=== PATIENT | female | born 1940 | race Caucasian/White ===

== ENCOUNTER 2018-08-02 12:03 | Inpatient (IN) ==
[2018-08-02 16:21] LABS: BASOPHILS % (AUTO) 0.6 % (0.2-1.0); EOSINOPHILS # (AUTO) 0.1 x10^3/uL (0.0-0.2); EOSINOPHILS % (AUTO) 1.1 % (0.9-2.9); HEMATOCRIT 32.2 % (36.0-47.0); HEMOGLOBIN 10.8 g/dL (12.0-16.0); LYMPHOCYTES # (AUTO) 1.6 X10^3/uL (1.3-2.9); LYMPHOCYTES % (AUTO) 28.1 % (21.0-51.0); MEAN CORPUSCULAR HEMOGLOBIN 30.9 pg (27.0-34.0); MEAN CORPUSCULAR HGB CONC 33.4 g/dL (33.0-35.0); MEAN CORPUSCULAR VOLUME 92.6 fL (80.0-100.0); MEAN PLATELET VOLUME 8.1 fL (7.4-11.0); MONOCYTES # (AUTO) 0.5 x10^3/uL (0.3-0.8); MONOCYTES % (AUTO) 8.5 % (0.0-13.0); NEUTROPHILS # (AUTO) 3.5 x10^3/uL (2.2-4.8); NEUTROPHILS % (AUTO) 61.7 % (42.0-75.0); PLATELET COUNT 149 X10^3/uL (150.0-450.0); RED BLOOD COUNT 3.48 X10^6/uL (3.5-5.4); RED CELL DISTRIBUTION WIDTH 13.8 % (11.6-16.5); WHITE BLOOD COUNT 5.7 X10^3/uL (3.6-10.0)
[2018-08-02 16:43] LABS: ALANINE AMINOTRANSFERASE 19 Units/L (12-78); ALKALINE PHOSPHATASE 84 Units/L (46-116); ASPARTATE AMINO TRANSFERASE 18 Units/L (15-37); BLOOD UREA NITROGEN 24 mg/dL (7-18); CALCIUM 8.9 mg/dL (8.5-10.1); CARBON DIOXIDE 27.9 mmol/L (21-32); CHLORIDE 102 mmol/L (98-107); CKMB % 7.8 % (<4); COR CA(FOR HYPOALB) 9.7 mg/dL (8.5-10.1); COR NA(FOR HYPERGLY) 140 mmol/L (136-145); CREATINE KINASE 37 Units/L (26-192); CREATINE KINASE MB 2.9 ng/mL (0-4.0); CREATININE 1.18 mg/dL (0.55-1.02); SODIUM 138 mmol/L (136-145); TOTAL PROTEIN 6.6 g/dL (6.4-8.2); TROPONIN I < 0.02 ng/mL (0-1.5); eGFR NON BLACK RACES 47 (>60)
--- NOTE | 2018-08-02 16:56 | CT ---
CT brain without contrast Indication:recent fall with altered mental status Comparison: None available Technique: Multiple axial images of the brain were obtained from the skull base to the vertex without administration of IV contrast. Dose reduction techniques including automated exposure control (AEC) and adjustment of mA and kV were utilized. Findings: Mild generalized cerebral atrophy. There is also mild bilateral periventricular hypoattenuation. Small right supraorbital frontal scalp hematoma without subjacent fracture. There is a small round radiopaque density within the left preseptal orbital soft tissues which appears to be ossified. No acute intraparenchymal hemorrhage or mass can be identified. No extra-axial fluid collections are seen. No alteration in the attenuation of the brain parenchyma can be identified to suggest acute or subacute ischemic change. The ventricular system is symmetric and nondilated. The extracranial structures are grossly unremarkable. IMPRESSION: No acute intracranial process is identified. Small right supraorbital frontal scalp hematoma. Small round radiopaque density likely is ossified within the left preseptal, orbital soft tissues. Mild generalized cerebral atrophy with bilateral periventricular and deep white matter hypoattenuation is nonspecific however likely represent sequela of chronic microvascular ischemic disease. Reported By:
[2018-08-02] MEDS: NS 1000 ML 1,000 ML IV SCH (17:42)
[2018-08-02] MEDS: ROCEPHIN VIAL 1 GRAM IVP SCH (17:42)
[2018-08-02 18:20] VITALS: BMI 24.7
[2018-08-03 00:27] LABS: CKMB % 4.2 % (<4); CREATINE KINASE MB 2.2 ng/mL (0-4.0); TROPONIN I 0.04 ng/mL (0-1.5)
[2018-08-03] MEDS ORDERED: CATAPRES TAB 0.1 MG ONE (01:47)
[2018-08-03] MEDS ORDERED: CATAPRES TAB 0.1 MG PO ONE (01:48)
[2018-08-03 02:02] LABS: BILIRUBIN,URINE NEGATIVE (NEGATIVE); BLOOD/HEMOGLOBIN,URINE NEGATIVE (NEGATIVE); GLUCOSE, URINE NEGATIVE (NEGATIVE); KETONES,URINE NEGATIVE (NEGATIVE); LEUKOCYTE ESTERASE ,URINE NEGATIVE (NEGATIVE); NITRITES,URINE NEGATIVE (NEGATIVE); PH,URINE 6.5 (5.0 - 8.0); PROTEIN,URINE NEGATIVE (NEGATIVE); UROBILINOGEN,URINE NORMAL (NORMAL)
[2018-08-03 02:04] LABS: APPEARANCE,URINE CLEAR (CLEAR); COLOR,URINE PALE YELLOW (YELLOW)
[2018-08-03] MEDS ORDERED: APRESOLINE INJ 20 MG VIAL IVP ONE (04:08)
[2018-08-03] MEDS ORDERED: APRESOLINE INJ 20 MG VIAL ONE (04:12)
[2018-08-03] MEDS: NS 1000 ML 1,000 ML IV SCH ×4 (06:10→22:34)
[2018-08-03 07:35] LABS: BASOPHILS % (AUTO) 0.9 % (0.2-1.0); EOSINOPHILS # (AUTO) 0.1 x10^3/uL (0.0-0.2); EOSINOPHILS % (AUTO) 1.3 % (0.9-2.9); HEMATOCRIT 32.8 % (36.0-47.0); HEMOGLOBIN 11.1 g/dL (12.0-16.0); LYMPHOCYTES # (AUTO) 1.5 X10^3/uL (1.3-2.9); LYMPHOCYTES % (AUTO) 31.4 % (21.0-51.0); MEAN CORPUSCULAR HGB CONC 33.8 g/dL (33.0-35.0); MEAN CORPUSCULAR VOLUME 91.7 fL (80.0-100.0); MEAN PLATELET VOLUME 8.3 fL (7.4-11.0); MONOCYTES # (AUTO) 0.5 x10^3/uL (0.3-0.8); MONOCYTES % (AUTO) 11.1 % (0.0-13.0); NEUTROPHILS # (AUTO) 2.7 x10^3/uL (2.2-4.8); NEUTROPHILS % (AUTO) 55.3 % (42.0-75.0); PLATELET COUNT 157 X10^3/uL (150.0-450.0); RED BLOOD COUNT 3.58 X10^6/uL (3.5-5.4); RED CELL DISTRIBUTION WIDTH 13.8 % (11.6-16.5); WHITE BLOOD COUNT 4.9 X10^3/uL (3.6-10.0)
[2018-08-03 07:36] LABS: ALANINE AMINOTRANSFERASE 19 Units/L (12-78); ALBUMIN 2.9 g/dL (3.4-5.0); ALKALINE PHOSPHATASE 75 Units/L (46-116); ASPARTATE AMINO TRANSFERASE 23 Units/L (15-37); BLOOD UREA NITROGEN 17 mg/dL (7-18); CALCIUM 9.3 mg/dL (8.5-10.1); CARBON DIOXIDE 28.2 mmol/L (21-32); CHLORIDE 105 mmol/L (98-107); COR CA(FOR HYPOALB) 10.2 mg/dL (8.5-10.1); CREATININE 0.95 mg/dL (0.55-1.02); SODIUM 142 mmol/L (136-145); TOTAL PROTEIN 6.5 g/dL (6.4-8.2); eGFR NON BLACK RACES > 60 (>60)
[2018-08-03 07:46] LABS: CKMB % 7.8 % (<4); CREATINE KINASE MB 2.9 ng/mL (0-4.0); TROPONIN I 0.03 ng/mL (0-1.5)
[2018-08-03] MEDS ORDERED: TYLENOL 325 MG TAB PO PRN (09:23)
--- NOTE | 2018-08-03 10:38 | RAD ---
HISTORY: Status post fall on 08/01/2018. Neck pain. Study: AP and lateral cervical spine Comparison: None Findings: Moderate osteopenia is noted. Loss of normal cervical lordosis is noted. 2-3 mm of spondylolisthesis of C5 on C6 is noted. Moderate disc space narrowing is noted at C6/C7 with minimal at C7/T1. Mild anterior spurring is noted at several levels with [id number] at C6/C7. The prevertebral soft tissues normal. The pre odontoid space is normal. The lateral masses of C1 are symmetric about the lateral masses of C2 and the odontoid process. Moderate facet and uncovertebral joint arthropathy is noted, predominating at C3/C4 and C4/C5. IMPRESSION: 1. Cervical spondylosis as described above. 2. Loss of normal cervical lordosis as described above. This may be seen in normal individuals, be positional or secondary to muscle spasm. 3. No acute bony abnormalities are identified. Reported By:
[2018-08-03] MEDS: ROCEPHIN VIAL 1 GRAM IVP SCH (10:40)
[2018-08-03] MEDS: MAALOX or MYLANTA PO SCH ×4 (10:40→22:35)
[2018-08-03] MEDS: COZAAR PO SCH (10:42)
[2018-08-03] MEDS: REMERON PO SCH (10:42)
[2018-08-03] MEDS: CARDIZEM CD 120 MG PO SCH (10:42)
[2018-08-03] MEDS: ASPIRIN PO SCH (10:42)
[2018-08-03] MEDS: CLARITIN PO SCH (10:42)
--- NOTE | 2018-08-03 10:51 | RAD ---
HISTORY: Bradycardia Study: AP portable chest Comparison: None Findings: Partial obscuration of the left hemidiaphragm and left lateral costophrenic angle is noted suggesting minimal atelectatic change/infiltrate. There may be minimal effusion in the right lateral costophrenic angle. Mild cardiomegaly is noted. No acute bony abnormalities are identified. IMPRESSION: 1. Mild cardiomegaly. 2. Findings of minimal atelectatic change/infiltrate the left lung base and questionable tiny bilateral pleural effusions. Reported By:
[2018-08-03] MEDS ORDERED: PHARMACY CONSULT - DOSE _____ XX SCH (13:00)
--- NOTE | 2018-08-03 13:01 | DR.H&P ---
H&P - History & Physical for Day of: H&P Date: 08/02/18 - Chief Complaint Chief Complaint: weakness, confusion, fall with head injury due to weakness, UTI - History of Present Illness History of Present Illness: 77 WF RESIDENT OF [facility], DIRECT ADMIT WITH CO RECENT UTI, INCREASED CONFUSION, WEAKNESS WITH FALLS X2 WITH HEAD INJURY. PT HIT HEAD ON TWO SEPARATE REPORTED OCCASSIONS THIS PAST WEEK DUE TO WEAKNESS. PT HAS PMH OF HTN, HYPERLIPIDEMAI, CAD, DENIES COPD OR DM. PT ADMITTED FOR TREATMENT FOR UTI, EVALUATION OF AMS AND HEAD INJURY. - Past Medical History Past Medical History: Arthritis, Coronary Artery Disease - Past Surgical History Surgical History: Unknown - Social History Does patient currently use any type of tobacco product: No Have you used tobacco products in the last 12 months: No Type of Tobacco Use: None Does any household member use tobacco: No Alcohol Use: None Drug Use: None - Medications Home Medications: No Known Drug Allergies Allergy (Verified 08/02/18 15:50) CONTINUE taking the following medications acetaminophen 650 mg PO Q6H PRN 08/02/18 [History] alum-mag hydroxide-simeth [Maalox Advanced] 15 ml PO Q6H 08/02/18 [History] aripiprazole 30 mg PO HS 08/02/18 [History] aspirin 325 mg PO QDAY 08/02/18 [History] cyanocobalamin (vitamin B-12) 1,000 mcg PO QMONTH 08/02/18 [History] diltiazem HCl [Cardizem CD] 120 mg PO DAILY 08/02/18 [History] divalproex 1,000 mg PO HS 08/02/18 [History] escitalopram oxalate 20 mg PO DAILY 08/02/18 [History] loperamide 2 mg PO Q2H PRN 08/02/18 [History] loratadine 10 mg PO QDAY 08/02/18 [History] losartan [Cozaar] 100 mg PO QDAY 08/02/18 [History] magnesium hydroxide [Milk of Magnesia] 15 ml PO QDAY PRN 08/02/18 [History] metoprolol tartrate [Lopressor] 25 mg PO BID 08/02/18 [History] mirtazapine [Remeron] 7.5 mg PO QDAY 08/02/18 [History] promethazine 25 mg PO Q6H PRN 08/02/18 [History] sucralfate [Carafate] 1 g PO TID 08/02/18 [History] - Review of Systems Constitutional: Weakness Eyes: No Symptoms Reported ENT: No Symptoms Reported Respiratory: No Symptoms Reported Cardiovascular: No Symptoms Reported Gastrointestinal: No Symptoms Reported Genitourinary: No Symptoms Reported Musculoskeletal: Neck Pain Skin: Bruising Neurological: Weakness, Confusion (REPORTED PER [facility] STAFF) - Physical Exam Vital Signs: Temperature 97.9 F Pulse Rate [Left Brachial] 67 Respiratory Rate 18 Blood Pressure [Left Arm] 139/65 O2 Sat by Pulse Oximetry 94 Oriented: Person Eyes: Normal Ear: Normal Nose: Normal Throat: Normal Respiratory: RLL Diminished, LLL Diminished Cardiovascular: Normal. negative: Edema : Normal Auscultation: Bowel Sounds: Normal Palpation: Normal Tenderness: Normal Skin: Decreased Turgur, Bruising (RIGHT EYE FOREHEAD) Musculoskeletal: Tender Mood Description: Anxious Affect: Anxious - Assessment/Plan (1) UTI (urinary tract infection) Status: Acute Plan: ADMIT, CT HEAD ON ADMISSION. ADMISSION LABS CBC CMP UA, UC. BC X 2. IV ATBX THERAPY, VERIFY AND RESUME HOME MEDICATION. NEURO CHECKS (2) Head injury due to trauma Status: Acute (3) Fall Status: Acute (4) Weakness Status: Acute (5) CAD (coronary artery disease) Status: Acute - Allergies Allergies/Adverse Reactions: Allergies Allergy/AdvReac Type Severity Reaction Status Date / Time No Known Drug Allergies Allergy Verified 08/02/18 15:50
--- NOTE | 2018-08-03 13:14 | PCM.PROG ---
Progress Note - Progress Note for Day of Date of Exam: 08/03/18 - Subjective Subjective: 77WF ADMITTE DON 08/02 WITH AMS FOLLOWING RECENT UTI AND HEAD INJURY DUE TO FALL FROM WEAKNESS. CT HEAD ON ADMISSION REVEALED SC HEMATOMA. PT IS AWAKE AND ALERT THIS AM. CO MILD OLIVAS AND NECK TENDNERNESS. PT DENIES ANY N/V/D. PT IS CURRENTLY ON IV ROCEPHIN WITH CULTURES PENDING. PT HAD BILATERAL DIMINISHED LUNG BASES WITH HX OF CAD. CXR ORDERED THIS AM. PT WAS HYPERTENSIVE ON ADMISSION WITH SYSTOLIC >190. PT BP STABLE THIS AM, RESUMED HOME MEDICATION - Past Medical Family Social History Past Med/Fam/Surg Hx: No changes since H&P Allergies: Allergies No Known Drug Allergies Allergy (Verified 08/02/18 15:50) - Review of Systems ROS: No change since H&P - Vital Signs and I&O's Vital Signs: Temperature 97.9 F Pulse Rate [Left Brachial] 67 Respiratory Rate 18 Blood Pressure [Left Arm] 139/65 O2 Sat by Pulse Oximetry 94 Intake and Output: Intake & Output 08/01/18 08/02/18 08/03/18 08/04/18 11:59 11:59 11:59 11:59 Intake Total 1507 / 1507 Balance 1507 / 1507 - Physical Exam Oriented: Person Eyes: Normal Ear: Normal Nose: Normal Throat: Normal Cardiovascular: Normal. negative: Edema : Normal Auscultation: Bowel Sounds: Normal Tenderness: Normal Skin: Decreased Turgur, Bruising (RIGHT EYE FOREHEAD) Musculoskeletal: Back:Lumbar, Tender (MILD TENDERNESS TO CERVICAL SPINE) Mood Description: Anxious Affect: Anxious Speech Pattern: Clear, Inappropriate - Laboratory and Diagnostics Result Diagrams: 08/03/18 07:11 08/03/18 07:11 Labs: Laboratory WBC 4.9 X10^3/uL (3.6-10.0) 08/03/18 07:11 RBC 3.58 X10^6/uL (3.5-5.4) 08/03/18 07:11 Hgb 11.1 g/dL (12.0-16.0) L 08/03/18 07:11 Hct 32.8 % (36.0-47.0) L 08/03/18 07:11 MCV 91.7 fL (80.0-100.0) 08/03/18 07:11 MCH 31.0 pg (27.0-34.0) 08/03/18 07:11 MCHC 33.8 g/dL (33.0-35.0) 08/03/18 07:11 RDW 13.8 % (11.6-16.5) 08/03/18 07:11 Plt Count 157 X10^3/uL (150.0-450.0) 08/03/18 07:11 MPV 8.3 fL (7.4-11.0) 08/03/18 07:11 Neut % (Auto) 55.3 % (42.0-75.0) 08/03/18 07:11 Lymph % (Auto) 31.4 % (21.0-51.0) 08/03/18 07:11 [place] % (Auto) 11.1 % (0.0-13.0) 08/03/18 07:11 Eos % (Auto) 1.3 % (0.9-2.9) 08/03/18 07:11 Baso % (Auto) 0.9 % (0.2-1.0) 08/03/18 07:11 Neut # (Auto) 2.7 x10^3/uL (2.2-4.8) 08/03/18 07:11 Lymph # (Auto) 1.5 X10^3/uL (1.3-2.9) 08/03/18 07:11 [place] # (Auto) 0.5 x10^3/uL (0.3-0.8) 08/03/18 07:11 Eos # (Auto) 0.1 x10^3/uL (0.0-0.2) 08/03/18 07:11 Baso # (Auto) 0.0 X10^3/uL (0.0-0.1) 08/03/18 07:11 Absolute Nucleated RBC 0.1 /100WBC 08/03/18 07:11 Sodium 142 mmol/L (136-145) 08/03/18 07:11 Corrected Sodium TNP 08/03/18 07:11 Potassium 3.8 mmol/L (3.5-5.1) 08/03/18 07:11 Chloride 105 mmol/L (98-107) 08/03/18 07:11 Carbon Dioxide 28.2 mmol/L (21-32) 08/03/18 07:11 BUN 17 mg/dL (7-18) 08/03/18 07:11 Creatinine 0.95 mg/dL (0.55-1.02) 08/03/18 07:11 Est GFR (MDRD) Af Amer > 60 (>60) 08/03/18 07:11 Est GFR (MDRD) Non-Af > 60 (>60) 08/03/18 07:11 Glucose 110 mg/dL (65-99) H 08/03/18 07:11 Calcium 9.3 mg/dL (8.5-10.1) 08/03/18 07:11 Corrected Calcium 10.2 mg/dL (8.5-10.1) H 08/03/18 07:11 Total Bilirubin 0.20 mg/dL (0.2-1.0) 08/03/18 07:11 AST 23 Units/L (15-37) 08/03/18 07:11 ALT 19 Units/L (12-78) 08/03/18 07:11 Alkaline Phosphatase 75 Units/L (46-116) 08/03/18 07:11 Creatine Kinase 37 Units/L (26-192) 08/03/18 07:11 CK-MB (CK-2) 2.9 ng/mL (0-4.0) 08/03/18 07:11 CK/CKMB % Calc 7.8 % (<4) 08/03/18 07:11 Troponin I 0.03 ng/mL (0-1.5) 08/03/18 07:11 Total Protein 6.5 g/dL (6.4-8.2) 08/03/18 07:11 Albumin 2.9 g/dL (3.4-5.0) L 08/03/18 07:11 Globulin 3.6 g/dL (2.5-4.5) 08/03/18 07:11 Albumin/Globulin Ratio 0.8 Ratio (1.1-2.1) L 08/03/18 07:11 Specimen Type Clean catch urine 08/03/18 01:30 Urine Color Pale yellow (YELLOW) 08/03/18 01:30 Urine Appearance Clear (CLEAR) 08/03/18 01:30 Urine pH 6.5 (5.0 - 8.0) 08/03/18 01:30 Ur Specific [place] 1.010 (1.000-1.030) 08/03/18 01:30 Urine Protein Negative (NEGATIVE) 08/03/18 01:30 Urine Glucose (UA) Negative (NEGATIVE) 08/03/18 01:30 Urine Ketones Negative (NEGATIVE) 08/03/18 01:30 Urine Occult Blood Negative (NEGATIVE) 08/03/18 01:30 Urine Nitrite Negative (NEGATIVE) 08/03/18 01:30 Urine Bilirubin Negative (NEGATIVE) 08/03/18 01:30 Urine Urobilinogen Normal (NORMAL) 08/03/18 01:30 Ur Leukocyte Esterase Negative (NEGATIVE) 08/03/18 01:30 - Plan (1) UTI (urinary tract infection) Status: Acute Plan: CT HEAD ON ADMISSION. AM LABS CBC CMP, UA AND UC ON ADMISSION. BC X 2. IV ATBX THERAPY, VERIFY AND RESUME HOME MEDICATION. NEURO CHECKS (2) Head injury due to trauma Status: Acute (3) Fall Status: Acute (4) Weakness Status: Acute (5) CAD (coronary artery disease) Status: Acute
[2018-08-03] MEDS: CARAFATE PO SCH ×2 (14:12→22:35)
[2018-08-03] MEDS ORDERED: K-DUR TAB 20 MEQ PO PRN (15:13)
[2018-08-03] MEDS ORDERED: MICRO K EXTEN CAP 10 MEQ PO PRN (15:13)
[2018-08-03] MEDS ORDERED: K-RIDER 10 MEQ/NS 100 ML 10 MEQ/100 ML BAG IV PRN (15:13)
[2018-08-03] MEDS ORDERED: KLOR-CON PO PRN (15:13)
[2018-08-03] MEDS ORDERED: POTASSIUM CHLORIDE LIQ 20 MEQ UDC PO PRN (15:13)
[2018-08-03] MEDS ORDERED: POTASSIUM CHL 60 MEQ/NS 0.45% 500 ML IV PRN (15:13)
[2018-08-03] MEDS ORDERED: POTASSIUM CHL 40 MEQ/NS 0.45% 500 ML IV PRN (15:13)
[2018-08-03] MEDS ORDERED: DEPAKOTE D.R. TAB ONE (21:54)
[2018-08-03] MEDS: DEPAKOTE D.R. TAB PO SCH (22:36)
[2018-08-03] MEDS: ABILIFY PO SCH (22:41)
[2018-08-04] MEDS: MAALOX or MYLANTA PO SCH ×5 (04:26→21:16)
[2018-08-04] MEDS: CARAFATE PO SCH ×3 (05:36→21:16)
[2018-08-04 06:15] LABS: BASOPHILS # (AUTO) 0.1 X10^3/uL (0.0-0.1); BASOPHILS % (AUTO) 0.8 % (0.2-1.0); EOSINOPHILS # (AUTO) 0.1 x10^3/uL (0.0-0.2); EOSINOPHILS % (AUTO) 1.7 % (0.9-2.9); HEMATOCRIT 32.8 % (36.0-47.0); HEMOGLOBIN 11.1 g/dL (12.0-16.0); LYMPHOCYTES # (AUTO) 3.4 X10^3/uL (1.3-2.9); LYMPHOCYTES % (AUTO) 44.8 % (21.0-51.0); MEAN CORPUSCULAR HEMOGLOBIN 31.2 pg (27.0-34.0); MEAN CORPUSCULAR HGB CONC 33.8 g/dL (33.0-35.0); MEAN CORPUSCULAR VOLUME 92.3 fL (80.0-100.0); MEAN PLATELET VOLUME 7.9 fL (7.4-11.0); MONOCYTES # (AUTO) 0.7 x10^3/uL (0.3-0.8); MONOCYTES % (AUTO) 9.4 % (0.0-13.0); NEUTROPHILS # (AUTO) 3.3 x10^3/uL (2.2-4.8); NEUTROPHILS % (AUTO) 43.3 % (42.0-75.0); PLATELET COUNT 167 X10^3/uL (150.0-450.0); RED BLOOD COUNT 3.56 X10^6/uL (3.5-5.4); WHITE BLOOD COUNT 7.6 X10^3/uL (3.6-10.0)
[2018-08-04 06:25] LABS: ALANINE AMINOTRANSFERASE 17 Units/L (12-78); ALKALINE PHOSPHATASE 88 Units/L (46-116); ASPARTATE AMINO TRANSFERASE 19 Units/L (15-37); BLOOD UREA NITROGEN 17 mg/dL (7-18); CALCIUM 9.4 mg/dL (8.5-10.1); CARBON DIOXIDE 26.5 mmol/L (21-32); CHLORIDE 104 mmol/L (98-107); COR CA(FOR HYPOALB) 10.2 mg/dL (8.5-10.1); CREATININE 1.15 mg/dL (0.55-1.02); SODIUM 140 mmol/L (136-145); TOTAL PROTEIN 6.6 g/dL (6.4-8.2); eGFR NON BLACK RACES 49 (>60)
--- NOTE | 2018-08-04 08:54 | PCM.PROG ---
Progress Note - Progress Note for Day of Date of Exam: 08/04/18 - Subjective Subjective: 77WF ADMITTE DON 08/02 WITH AMS FOLLOWING RECENT UTI AND HEAD INJURY DUE TO FALL FROM WEAKNESS. CT HEAD ON ADMISSION REVEALED SC HEMATOMA. PT IS AWAKE AND ALERT THIS AM. CO MILD OLIVAS AND NECK TENDNERNESS. PT STATES ONSET OF WEAKNESS PRIOR ADMISSION STARTED WITH A "VIRUS". PT DENIES ANY N/V SINCE ADMISSION BUT REPORTS BOUT OF DIARRHEA THIS AM. DENIES ABOMINAL PAIN. STOOL CULTURES ADDED. PT IS CURRENTLY ON IV ROCEPHIN WITH CULTURES PENDING. PT HAD BILATERAL DIMINISHED LUNG BASES WITH HX OF CAD. CXR WITHOUT ACUTE FINDINGS. PT C SPINE WITH DEGENERATIVE CHANGES. - Past Medical Family Social History Past Med/Fam/Surg Hx: No changes since H&P Allergies: Allergies No Known Drug Allergies Allergy (Verified 08/02/18 15:50) - Review of Systems ROS: No change since H&P - Vital Signs and I&O's Vital Signs: Temperature 97.9 F Pulse Rate [Left Brachial] 72 Respiratory Rate 20 Blood Pressure [Left Arm] 158/60 O2 Sat by Pulse Oximetry 95 Intake and Output: Intake & Output 08/01/18 08/02/18 08/03/18 08/04/18 11:59 11:59 11:59 11:59 Intake Total 1507 / 1507 1907 / 1908 Balance 1507 / 1507 1907 / 190 - Physical Exam Oriented: Person Eyes: Normal Ear: Normal Nose: Normal Throat: Normal Cardiovascular: Normal. negative: Edema : Normal Auscultation: Bowel Sounds: Increased (MILDLY HYPERACTIVE) Tenderness: Normal Skin: Decreased Turgur, Bruising (RIGHT EYE FOREHEAD) Musculoskeletal: Back:Lumbar, Tender (MILD TENDERNESS TO CERVICAL SPINE) Mood Description: Anxious Affect: Anxious Speech Pattern: Clear, Inappropriate - Laboratory and Diagnostics Result Diagrams: 08/04/18 05:52 08/04/18 05:52 Labs: Laboratory WBC 7.6 X10^3/uL (3.6-10.0) 08/04/18 05:52 RBC 3.56 X10^6/uL (3.5-5.4) 08/04/18 05:52 Hgb 11.1 g/dL (12.0-16.0) L 08/04/18 05:52 Hct 32.8 % (36.0-47.0) L 08/04/18 05:52 MCV 92.3 fL (80.0-100.0) 08/04/18 05:52 MCH 31.2 pg (27.0-34.0) 08/04/18 05:52 MCHC 33.8 g/dL (33.0-35.0) 08/04/18 05:52 RDW 14.0 % (11.6-16.5) 08/04/18 05:52 Plt Count 167 X10^3/uL (150.0-450.0) 08/04/18 05:52 MPV 7.9 fL (7.4-11.0) 08/04/18 05:52 Neut % (Auto) 43.3 % (42.0-75.0) 08/04/18 05:52 Lymph % (Auto) 44.8 % (21.0-51.0) 08/04/18 05:52 [place] % (Auto) 9.4 % (0.0-13.0) 08/04/18 05:52 Eos % (Auto) 1.7 % (0.9-2.9) 08/04/18 05:52 Baso % (Auto) 0.8 % (0.2-1.0) 08/04/18 05:52 Neut # (Auto) 3.3 x10^3/uL (2.2-4.8) 08/04/18 05:52 Lymph # (Auto) 3.4 X10^3/uL (1.3-2.9) H 08/04/18 05:52 [place] # (Auto) 0.7 x10^3/uL (0.3-0.8) 08/04/18 05:52 Eos # (Auto) 0.1 x10^3/uL (0.0-0.2) 08/04/18 05:52 Baso # (Auto) 0.1 X10^3/uL (0.0-0.1) 08/04/18 05:52 Absolute Nucleated RBC 0.1 /100WBC 08/04/18 05:52 Sodium 140 mmol/L (136-145) 08/04/18 05:52 Corrected Sodium TNP 08/04/18 05:52 Potassium 4.5 mmol/L (3.5-5.1) 08/04/18 05:52 Chloride 104 mmol/L (98-107) 08/04/18 05:52 Carbon Dioxide 26.5 mmol/L (21-32) 08/04/18 05:52 BUN 17 mg/dL (7-18) 08/04/18 05:52 Creatinine 1.15 mg/dL (0.55-1.02) H 08/04/18 05:52 Est GFR (MDRD) Af Amer 59 (>60) 08/04/18 05:52 Est GFR (MDRD) Non-Af 49 (>60) L 08/04/18 05:52 Glucose 107 mg/dL (65-99) H 08/04/18 05:52 Calcium 9.4 mg/dL (8.5-10.1) 08/04/18 05:52 Corrected Calcium 10.2 mg/dL (8.5-10.1) H 08/04/18 05:52 Magnesium 1.7 mg/dL (1.7-2.9) 08/03/18 07:11 Total Bilirubin 0.20 mg/dL (0.2-1.0) 08/04/18 05:52 AST 19 Units/L (15-37) 08/04/18 05:52 ALT 17 Units/L (12-78) 08/04/18 05:52 Alkaline Phosphatase 88 Units/L (46-116) 08/04/18 05:52 Creatine Kinase 37 Units/L (26-192) 08/03/18 07:11 CK-MB (CK-2) 2.9 ng/mL (0-4.0) 08/03/18 07:11 CK/CKMB % Calc 7.8 % (<4) 08/03/18 07:11 Troponin I 0.03 ng/mL (0-1.5) 08/03/18 07:11 Total Protein 6.6 g/dL (6.4-8.2) 08/04/18 05:52 Albumin 3.0 g/dL (3.4-5.0) L 08/04/18 05:52 Globulin 3.6 g/dL (2.5-4.5) 08/04/18 05:52 Albumin/Globulin Ratio 0.8 Ratio (1.1-2.1) L 08/04/18 05:52 Specimen Type Clean catch urine 08/03/18 01:30 Urine Color Pale yellow (YELLOW) 08/03/18 01:30 Urine Appearance Clear (CLEAR) 08/03/18 01:30 Urine pH 6.5 (5.0 - 8.0) 08/03/18 01:30 Ur Specific [place] 1.010 (1.000-1.030) 08/03/18 01:30 Urine Protein Negative (NEGATIVE) 08/03/18 01:30 Urine Glucose (UA) Negative (NEGATIVE) 08/03/18 01:30 Urine Ketones Negative (NEGATIVE) 08/03/18 01:30 Urine Occult Blood Negative (NEGATIVE) 08/03/18 01:30 Urine Nitrite Negative (NEGATIVE) 08/03/18 01:30 Urine Bilirubin Negative (NEGATIVE) 08/03/18 01:30 Urine Urobilinogen Normal (NORMAL) 08/03/18 01:30 Ur Leukocyte Esterase Negative (NEGATIVE) 08/03/18 01:30 - Plan (1) UTI (urinary tract infection) Status: Acute Plan: CT HEAD ON ADMISSION. AM LABS CBC CMP, UA AND UC ON ADMISSION. BC X 2. IV ATBX THERAPY, VERIFY AND RESUME HOME MEDICATION. NEURO CHECKS (2) Head injury due to trauma Status: Acute (3) Fall Status: Acute (4) Weakness Status: Acute (5) CAD (coronary artery disease) Status: Acute (6) Diarrhea Status: Acute Plan: ORAL HYDRATION. STOOL STUDIES
[2018-08-04] MEDS ORDERED: LEXAPRO ONE (09:21)
[2018-08-04] MEDS: NS 1000 ML 1,000 ML IV SCH (10:00)
[2018-08-04] MEDS: ASPIRIN PO SCH (10:09)
[2018-08-04] MEDS: CLARITIN PO SCH (10:09)
[2018-08-04] MEDS: LEXAPRO PO SCH (10:10)
[2018-08-04] MEDS: REMERON PO SCH (10:10)
[2018-08-04] MEDS: COZAAR PO SCH (10:11)
[2018-08-04] MEDS: CARDIZEM CD 120 MG PO SCH (10:12)
[2018-08-04] MEDS: ROCEPHIN VIAL 1 GRAM IVP SCH (10:12)
[2018-08-04] MEDS ORDERED: DEPAKOTE D.R. TAB ONE (20:32)
[2018-08-04] MEDS: DEPAKOTE D.R. TAB PO SCH (21:16)
[2018-08-04] MEDS: ABILIFY PO SCH (22:00)
[2018-08-05] MEDS: MAALOX or MYLANTA PO SCH ×5 (04:30→21:00)
[2018-08-05] MEDS: CARAFATE PO SCH ×3 (06:00→22:00)
[2018-08-05 06:09] LABS: BASOPHILS % (AUTO) 0.7 % (0.2-1.0); EOSINOPHILS # (AUTO) 0.2 x10^3/uL (0.0-0.2); EOSINOPHILS % (AUTO) 2.8 % (0.9-2.9); HEMATOCRIT 28.9 % (36.0-47.0); HEMOGLOBIN 9.9 g/dL (12.0-16.0); LYMPHOCYTES # (AUTO) 1.8 X10^3/uL (1.3-2.9); LYMPHOCYTES % (AUTO) 30.7 % (21.0-51.0); MEAN CORPUSCULAR HEMOGLOBIN 31.5 pg (27.0-34.0); MEAN CORPUSCULAR HGB CONC 34.4 g/dL (33.0-35.0); MEAN CORPUSCULAR VOLUME 91.6 fL (80.0-100.0); MEAN PLATELET VOLUME 7.6 fL (7.4-11.0); MONOCYTES # (AUTO) 0.7 x10^3/uL (0.3-0.8); MONOCYTES % (AUTO) 11.6 % (0.0-13.0); NEUTROPHILS # (AUTO) 3.2 x10^3/uL (2.2-4.8); NEUTROPHILS % (AUTO) 54.2 % (42.0-75.0); PLATELET COUNT 150 X10^3/uL (150.0-450.0); RED BLOOD COUNT 3.15 X10^6/uL (3.5-5.4); RED CELL DISTRIBUTION WIDTH 13.7 % (11.6-16.5); WHITE BLOOD COUNT 5.9 X10^3/uL (3.6-10.0)
[2018-08-05 06:29] LABS: ALANINE AMINOTRANSFERASE 13 Units/L (12-78); ALBUMIN 2.6 g/dL (3.4-5.0); ALKALINE PHOSPHATASE 76 Units/L (46-116); ASPARTATE AMINO TRANSFERASE 20 Units/L (15-37); BLOOD UREA NITROGEN 14 mg/dL (7-18); CARBON DIOXIDE 28.4 mmol/L (21-32); CHLORIDE 104 mmol/L (98-107); COR CA(FOR HYPOALB) 10.1 mg/dL (8.5-10.1); CREATININE 1.19 mg/dL (0.55-1.02); SODIUM 139 mmol/L (136-145); eGFR NON BLACK RACES 47 (>60)
[2018-08-05] MEDS ORDERED: LEXAPRO ONE (09:09)
[2018-08-05] MEDS: ROCEPHIN VIAL 1 GRAM IVP SCH (09:31)
[2018-08-05] MEDS: LEXAPRO PO SCH (09:32)
[2018-08-05] MEDS: CLARITIN PO SCH (09:32)
[2018-08-05] MEDS: ASPIRIN PO SCH (09:32)
[2018-08-05] MEDS: CARDIZEM CD 120 MG PO SCH (09:32)
[2018-08-05] MEDS: COZAAR PO SCH (09:32)
[2018-08-05] MEDS: NS 1000 ML 1,000 ML IV SCH (11:16)
[2018-08-05] MEDS: REMERON PO SCH (12:11)
[2018-08-05] MEDS ORDERED: APRESOLINE INJ 20 MG VIAL IVP PRN (12:58)
[2018-08-05] MEDS ORDERED: DEPAKOTE D.R. TAB ONE (20:33)
[2018-08-05] MEDS: DEPAKOTE D.R. TAB PO SCH (21:00)
[2018-08-05] MEDS: ABILIFY PO SCH (21:00)
[2018-08-06] MEDS: MAALOX or MYLANTA PO SCH ×3 (03:15→16:09)
[2018-08-06] MEDS: NS 1000 ML 1,000 ML IV SCH ×2 (04:00→05:05)
[2018-08-06 05:28] LABS: BASOPHILS % (AUTO) 0.8 % (0.2-1.0); EOSINOPHILS # (AUTO) 0.1 x10^3/uL (0.0-0.2); EOSINOPHILS % (AUTO) 2.5 % (0.9-2.9); HEMATOCRIT 30.1 % (36.0-47.0); HEMOGLOBIN 10.3 g/dL (12.0-16.0); LYMPHOCYTES # (AUTO) 1.6 X10^3/uL (1.3-2.9); LYMPHOCYTES % (AUTO) 27.7 % (21.0-51.0); MEAN CORPUSCULAR HEMOGLOBIN 31.5 pg (27.0-34.0); MEAN CORPUSCULAR HGB CONC 34.2 g/dL (33.0-35.0); MEAN CORPUSCULAR VOLUME 91.9 fL (80.0-100.0); MEAN PLATELET VOLUME 7.8 fL (7.4-11.0); MONOCYTES # (AUTO) 0.8 x10^3/uL (0.3-0.8); NEUTROPHILS # (AUTO) 3.2 x10^3/uL (2.2-4.8); PLATELET COUNT 147 X10^3/uL (150.0-450.0); RED BLOOD COUNT 3.28 X10^6/uL (3.5-5.4); RED CELL DISTRIBUTION WIDTH 13.8 % (11.6-16.5); WHITE BLOOD COUNT 5.8 X10^3/uL (3.6-10.0)
[2018-08-06 05:43] LABS: ALBUMIN 2.7 g/dL (3.4-5.0); CALCIUM 9.3 mg/dL (8.5-10.1); CARBON DIOXIDE 28.7 mmol/L (21-32); COR CA(FOR HYPOALB) 10.3 mg/dL (8.5-10.1); CREATININE 1.15 mg/dL (0.55-1.02); TOTAL PROTEIN 6.2 g/dL (6.4-8.2)
[2018-08-06] MEDS: CARAFATE PO SCH ×2 (05:43→16:08)
[2018-08-06] MEDS ORDERED: LEXAPRO ONE (09:18)
[2018-08-06] MEDS: ROCEPHIN VIAL 1 GRAM IVP SCH (09:23)
[2018-08-06] MEDS: COZAAR PO SCH (09:24)
[2018-08-06] MEDS: REMERON PO SCH (09:24)
[2018-08-06] MEDS: LEXAPRO PO SCH (09:24)
[2018-08-06] MEDS: ASPIRIN PO SCH (09:25)
[2018-08-06] MEDS: CARDIZEM CD 120 MG PO SCH (09:25)
[2018-08-06] MEDS: CLARITIN PO SCH (09:25)
[2018-08-06 15:49] VITALS: BP 184/70
== END 2018-08-06 17:20 | disposition home or self-care (01) | DRG 690 ==
LOC: MED/SURG 15:22
PROVIDERS: ADMIT Internal Medicine; ATTEND Internal Medicine
DX: R53.1 Weakness; R19.7 Diarrhea, unspecified; I25.10 Atherosclerotic heart disease of native coronary artery without angina pectoris; N39.0 Urinary tract infection, site not specified; E78.2 Mixed hyperlipidemia; R26.89 Other abnormalities of gait and mobility; S09.8XXA Other specified injuries of head, initial encounter; W18.39XA Other fall on same level, initial encounter; R41.82 Altered mental status, unspecified; Y92.89 Other specified places as the place of occurrence of the external cause; Z91.81 History of falling
CPT/HCPCS: 36415; 70450; 71010; 71045; 72040; 80053; 81003; 82550; 82553; 83735; 84484; 85025; 87040; 87086; 93005; 94760; 97162; 97165; A4222; J0360; J0400; J0696; J7030